=== PATIENT | male | born 1960 | race Caucasian/White ===

== ENCOUNTER 2020-11-24 14:29 | Emergency (ER) | payer BC ==
[2020-11-24] MEDS ORDERED: Sodium Chloride 0.9% 1,000 ML IV ONE (14:51)
[2020-11-24 15:02] LABS: CHLORIDE,CL 101 mEq/L (98-106); SODIUM,NA 139 mEq/L (136-145)
[2020-11-24] MEDS ORDERED: cefTRIAXone 1 GM Vial IVPUSH ONE (17:08)
--- NOTE | 2020-11-24 17:13 | EDM.PDOC ---
ED HPI GENERAL MEDICAL PROBLEM - General Chief Complaint: Exposure to Heat or Cold Stated Complaint: heat stroke Time Seen by Provider: 11/24/20 15:00 Source of Information: Reports: Patient History Limitations: Reports: No Limitations - History of Present Illness INITIAL COMMENTS - FREE TEXT/NARRATIVE: Jerome is a 60 yo male who presents to the ED with c/o near syncopal episode. Reports he was working in outdoor hot conditions when he started to feel very faint. 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 Does not believe he lost consciousness but felt very faint and dizzy. He reports once he was able to get into air conditioned vehicle he did start to feel better. He reports upon arrival to ED and at the time of my exam he is feeling back to baseline and has no complaints. Does report that the last week he has had productive cough. Does not feel short of breath. Has been afebrile. Onset: Today, Sudden Duration: Resolved Prior to Arrival Location: Reports: Generalized Associated Symptoms: Reports: Cough. Denies: Confusion, Chest Pain, cough w sputum, Diaphoresis, Fever/Chills, Headaches, Loss of Appetite, Malaise, Nausea/Vomiting, Rash, Seizure, Shortness of Breath, Syncope, Weakness - Related Data Allergies Allergy/AdvReac Type Severity Reaction Status Date / Time No Known Allergies Allergy Verified 11/24/20 14:51 Home Meds: Home Meds Aspirin [Aspirin EC] 81 mg PO DAILY 11/24/20 [History] Doxycycline [Vibra-Tabs] 100 mg PO Q12HR 7 Days #14 tab 11/24/20 [Rx] Losartan [Cozaar] 25 mg PO DAILY 11/24/20 [History] Simvastatin 20 mg PO DAILY 11/24/20 [History] predniSONE [Prednisone] 20 mg PO DAILY #5 tablet 11/24/20 [Rx] Past Medical History Cardiovascular History: Reports: High Cholesterol, Hypertension Social & Family History - Tobacco Use Tobacco Use Status *Q: Never Tobacco User - Caffeine Use Caffeine Use: Reports: Soda - Recreational Drug Use Recreational Drug Use: No ED ROS GENERAL - Review of Systems Review Of Systems: Comprehensive ROS is negative, except as noted in HPI. ED EXAM, GENERAL - Physical Exam Exam: See Below Exam Limited By: No Limitations General Appearance: Alert, WD/WN, No Apparent Distress Eye Exam: Bilateral Eye: EOMI, Normal Fundi, Normal Inspection, PERRL Nose: Normal Inspection, Normal Mucosa, No Blood Throat/Mouth: Normal Inspection, Normal Lips, Normal Teeth, Normal Gums, Normal Oropharynx, Normal Voice, No Airway Compromise Head: Atraumatic, Normocephalic Neck: Normal Inspection, Supple, Non-Tender, Full Range of Motion Respiratory/Chest: No Respiratory Distress, Normal Breath Sounds, No Accessory Muscle Use, Chest Non-Tender, Rhonchi (LLL), Wheezing Cardiovascular: Normal Peripheral Pulses, Regular Rate, Rhythm, No Edema, No Gallop, No JVD, No Murmur, No Rub GI/Abdominal: Normal Bowel Sounds, Soft, Non-Tender, No Organomegaly, No Distention, No Abnormal Bruit, No Mass Back Exam: Normal Inspection, Full Range of Motion, NT Extremities: Normal Inspection, Normal Range of Motion, Non-Tender, Normal Capillary Refill, No Pedal Edema Neurological: Alert, Oriented, CN II-XII Intact, Normal Cognition, Normal Gait, Normal Reflexes, No Motor/Sensory Deficits Psychiatric: Normal Affect, Normal Mood Skin Exam: Warm, Dry, Intact, Normal Color, No Rash Lymphatic: No Adenopathy Course - Vital Signs Last Recorded V/S: Last Vital Signs Temp 98.5 F 11/24/20 14:41 Pulse 84 11/24/20 14:41 Resp 18 11/24/20 14:41 BP 140/83 11/24/20 14:41 Pulse Ox 92 L 11/24/20 14:41 - Orders/Labs/Meds Orders: Active Orders 24 hr Category Date Time Status Chest 2V [CR] Stat Exams 11/24/20 15:26 Taken Labs: Laboratory Tests 11/24/20 11/24/20 11/24/20 Range/Units 14:43 14:43 14:45 WBC 9.3 (4.0-11.0) 10^3/uL RBC 5.10 (4.50-6.00) x10^6/uL Hgb 15.6 (14.0-18.0) g/dL Hct 45.5 (42.0-52.0) % MCV 89.2 (83.0-97.0) fL MCH 30.6 (27.0-32.0) pg MCHC 34.3 (32.0-36.0) g/dL RDW Coeff of Radha 12.4 (11.0-15.0) % Plt Count 198 (150-400) 10^3/uL Immature Gran % (Auto) 0.0 (0.0-4.9) % Neut % (Auto) 58.5 (41-71) % Lymph % (Auto) 25.4 (24-44) % [place] % (Auto) 11.6 H (0-10) % Eos % (Auto) 3.6 (0-6) % Baso % (Auto) 0.9 (0-1) % Neut # (Auto) 5.46 (1.80-8.00) x10^3/uL Lymph # (Auto) 2.37 (0.60-5.00) 10^3/uL [place] # (Auto) 1.08 (0.00-1.50) 10^3/uL Eos # (Auto) 0.34 (0.00-1.50) 10^3/uL Baso # (Auto) 0.08 (0.00-0.50) 10^3/uL Immature Gran # (Auto) 0.00 (0.00-0.49) 10^3/uL Sodium 139 (136-145) mEq/L Potassium 3.7 (3.5-5.0) mEq/L Chloride 101 (98-106) mEq/L Carbon Dioxide 27 (21-32) mmol/L BUN 17 (7-18) mg/dL Creatinine 1.4 H (0.7-1.3) mg/dL Est Cr Clr Drug Dosing 56.49 mL/min Estimated GFR (MDRD) 51 L (>=60) mL/min Glucose 127 H (75-99) mg/dL Calcium 8.9 (8.4-10.1) mg/dL Total Bilirubin 2.4 H (0.0-1.0) mg/dL AST 18 (15-37) U/L ALT 27 (12-78) U/L Alkaline Phosphatase 46 (46-116) U/L Troponin I < 0.017 (0.00-0.06) ng/mL Total Protein 7.7 (6.4-8.2) g/dL Albumin 3.7 (3.4-5.0) g/dL SARS CoV-2 RNA Rapid MARTA Negative (NEGATIVE) Meds: Medications Discontinued Medications Generic Name Dose Route Start Last Admin Trade Name Rowena PRN Reason Stop Dose Admin Ceftriaxone Sodium 1 gm 11/24/20 17:08 11/24/20 17:38 Ceftriaxone 1 Gm Vial IVPUSH 11/24/20 17:09 1 gm ONETIME ONE Administration Sodium Chloride 1,000 mls @ 999 mls/hr 11/24/20 14:51 11/24/20 15:02 Normal Saline IV 11/24/20 15:51 999 mls/hr .BOLUS ONE Administration - Re-Assessments/Exams Free Text/Narrative Re-Assessment/Exam: Patient had adventitious lung sounds so opted to proceed with CXR. CXR does reveal early infiltrate. Discussed labs, EKG and CXR findings with patient. Discussed plan of care. Patient agreeable. Departure - Departure Time of Disposition: 17:07 Disposition: Home, Self-Care 01 Condition: Good Clinical Impression: Pneumonia Qualifiers: Pneumonia type: due to unspecified organism Laterality: left Lung location: lower lobe of lung Qualified Code(s): J18.9 - Pneumonia, unspecified organism Heat exhaustion Qualifiers: Encounter type: initial encounter Qualified Code(s): T67.5XXA - Heat exhaustion, unspecified, initial encounter - Discharge Information *PRESCRIPTION DRUG MONITORING PROGRAM REVIEWED*: Not Applicable *COPY OF PRESCRIPTION DRUG MONITORING REPORT IN PATIENT DANIEL: Not Applicable Prescriptions: predniSONE [Prednisone] 20 mg PO DAILY #5 tablet Doxycycline [Vibra-Tabs] 100 mg PO Q12HR 7 Days #14 tab Instructions: Heat Exhaustion, Community-Acquired Pneumonia, Adult, [id number] Referrals: PCP,None [Primary Care Provider] - Forms: ED Department Discharge Additional Instructions: - Rest and push fluids - Doxycycline 1 tablet every 12 hours x 7 days - Prednisone 20 mg 1 tablet daily x 5 days - Avoid heat and overexertion until feeling better - Follow up with PCP for recheck if symptoms worsen or do not improve Sepsis Event Note (ED) - Evaluation Sepsis Screening Result: No Definite Risk - Focused Exam Vital Signs: Vital Signs Temp Pulse Resp BP Pulse Ox 11/24/20 14:41 98.5 F 84 18 140/83 92 L - Problem List & Annotations (1) Heat exhaustion SNOMED Code(s): 61512862 Code(s): T67.5XXA - HEAT EXHAUSTION, UNSPECIFIED, INITIAL ENCOUNTER Status: Acute Qualifiers: Encounter type: initial encounter Qualified Code(s): T67.5XXA - Heat exhaustion, unspecified, initial encounter (2) Pneumonia SNOMED Code(s): 632710125 Code(s): J18.9 - PNEUMONIA, UNSPECIFIED ORGANISM Status: Acute Qualifiers: Pneumonia type: due to unspecified organism Laterality: left Lung location: lower lobe of lung Qualified Code(s): J18.9 - Pneumonia, unspecified organism - My Orders Last 24 Hours: My Active Orders 11/24/20 15:26 Chest 2V [CR] Stat - Assessment/Plan Last 24 Hours: My Active Orders 11/24/20 15:26 Chest 2V [CR] Stat Assessment:: Pneumonia Heat Exhaustion Plan: See above.
== END 2020-11-24 17:40 | disposition home or self-care (01) ==
LOC: CC.ED 14:29
DX: T67.5XXA Heat exhaustion, unspecified, initial encounter (principal); J18.9 Pneumonia, unspecified organism; E78.00 Pure hypercholesterolemia, unspecified; I10 Essential (primary) hypertension; Z79.82 Long term (current) use of aspirin; Z79.899 Other long term (current) drug therapy; Z20.822 Contact with and (suspected) exposure to COVID-19
CPT/HCPCS: 36415; 71046; 80053; 84484; 85025; 87635; 93005; 96374; 99284; J0696; J7030; U0002